=== PATIENT | male | born 1985 | race Hispanic/Latino ===

== ENCOUNTER 2018-09-13 12:45 | Outpatient (CLI) | payer OTHER ==
--- NOTE | 2018-09-13 14:47 | RAD ---
CERVICAL SPINE RADIOGRAPH SERIES FOUR VIEWS: INDICATIONS: Muscle spasms. Left neck pain. FINDINGS: There is no compressed fracture or subluxation. The prevertebral soft tissues are normal in caliber. The dense is intact. The lateral masses of C1 are appropriate aligned. IMPRESSION: No acute osseous abnormality of the cervical spine. POS: [facility]
== END 2018-09-13 12:46 | disposition home or self-care (01) ==
LOC: MADRAD 12:45
PROVIDERS: ATTEND Family Medicine
DX: M62.838 Other muscle spasm (principal); M54.2 Cervicalgia
CPT/HCPCS: 72050

== ENCOUNTER 2021-10-27 14:00 | Emergency (ER) | payer SELFPAY ==
[2021-10-27] MEDS ORDERED: Acetaminophen 500 MG TAB ONE (14:51)
[2021-10-27] MEDS ORDERED: Ibuprofen 800 MG TAB ONE (14:51)
== END 2021-10-27 14:50 | disposition home or self-care (01) ==
LOC: MADERS 14:00
DX: S80.12XA Contusion of left lower leg, initial encounter (principal); W55.12XA Struck by horse, initial encounter